=== PATIENT | male | born 1975 | race African-American/Black ===

== ENCOUNTER 2020-01-13 03:32 | Inpatient (IN) | payer SELFPAY ==
[~2020-01-13] VITALS: Ht 182.9 cm; Wt 99.8 kg
[2020-01-13 06:05] LABS: CHLORIDE 106 mEq/L (98-107)
[2020-01-13 06:09] LABS: ETHANOL BLOOD < 10 mg/dL
[2020-01-13 06:37] LABS: BASOPHILS % 0.3 % (0.0-2.0); EOSINOPHILS % 0.5 % (0.0-5.0); HEMATOCRIT. 42.5 % (42.0-52.0); HEMOGLOBIN. 14.3 g/dL (14.0-18.0); LYMPHOCYTES % 11.6 % (20.0-50.0); MEAN CORPUSCULAR HEMOGLOBIN 30.1 pg (28.0-32.0); MEAN CORPUSCULAR VOLUME 89.6 fL (80.0-94.0); MEAN PLATELET VOLUME 9.4 fl (7.4-10.4); MONOCYTES % 8.1 % (2.0-8.0); NEUTROPHILS % 79.5 % (40.0-76.0); PLATELET 303 x1000/uL (130-400); RED BLOOD CELL COUNT 4.74 mill/uL (4.7-6.1); RED CELL DISTRIBUTION WIDTH 13.4 % (11.6-14.6)
[2020-01-13] MEDS ORDERED: ASPIRIN 325MG EC TABLET PO ONE (06:45)
[2020-01-13] MEDS ORDERED: ZOLPIDEM TARTRATE 5MG TABLET PO PRN (07:30)
[2020-01-13] MEDS ORDERED: GUAIFENESIN 200MG/10ML SUGAR FREE UDC PO PRN (07:30)
[2020-01-13] MEDS ORDERED: CLONIDINE 0.1MG TABLET PO PRN (07:30)
[2020-01-13] MEDS ORDERED: DOCUSATE SODIUM 100MG CAPSULE PO PRN (07:30)
[2020-01-13] MEDS ORDERED: NITROGLYCERIN 0.4MG TABLET SL SL PRN (07:30)
[2020-01-13] MEDS ORDERED: KETOROLAC 15MG/ML VIAL IV PRN (07:30)
[2020-01-13] MEDS ORDERED: ACETAMINOPHEN 325MG TABLET PO PRN ×2 (07:30)
[2020-01-13] MEDS ORDERED: ONDANSETRON HCL 4MG/2ML INJ IV PRN (07:30)
[2020-01-13] MEDS ORDERED: MAGNESIUM/ALUMINUM HYDROXIDE/SIMETHICONE 30ML UDC PO PRN (07:30)
[2020-01-13] MEDS ORDERED: IPRATROPIUM/ALBUTEROL 0.5-3(2.5)MG/3ML NEB NEB PRN (07:30)
[2020-01-13 08:00] VITALS: BP 142/79
[2020-01-13] MEDS: FAMOTIDINE 20MG TABLET PO SCH ×2 (08:29→20:38)
[2020-01-13] MEDS: ENOXAPARIN 40MG/0.4ML SYR SUBCUT SCH (08:29)
[2020-01-13 09:00] VITALS: BP 141/78
[2020-01-13 12:00] VITALS: BP 108/69
[2020-01-13 16:00] VITALS: BP_SYST 104; BP_SYST 110; BP_DIAS 56; BP_DIAS 72
[2020-01-13 16:03] LABS: CREATINE KINASE 195 IU/L (39-308)
[2020-01-13 16:04] LABS: CREATINE KINASE MB FRACTION 1.1 ng/mL (0.5-3.6)
[2020-01-13 20:00] VITALS: BP 114/51
[2020-01-14] VITALS: BP 127/64
[2020-01-14 00:07] LABS: CREATINE KINASE 165 IU/L (39-308)
[2020-01-14 00:10] LABS: CREATINE KINASE MB FRACTION < 1.0 ng/mL (0.5-3.6)
[2020-01-14 04:00] VITALS: BP 116/52
[2020-01-14 08:00] VITALS: BP 125/80
[2020-01-14] MEDS ORDERED: ASPIRIN 325MG EC TABLET PO SCH (09:00)
[2020-01-14] MEDS ORDERED: ASPIRIN 81MG EC TABLET PO SCH (09:00)
[2020-01-14] MEDS: FAMOTIDINE 20MG TABLET PO SCH (09:41)
[2020-01-14] MEDS: ENOXAPARIN 40MG/0.4ML SYR SUBCUT SCH (09:42)
[2020-01-14 11:21] VITALS: BP 128/80
[2020-01-14 12:00] VITALS: BP 129/90
== END 2020-01-14 12:05 | disposition home or self-care (01) | DRG 204 ==
LOC: ER 03:32 → 5WST 06:58 → ENRESERV 08:10 → 5WST 09:12
PROVIDERS: ADMIT Internal Medicine; ATTEND Internal Medicine
DX: R55 Syncope and collapse (principal); J45.909 Unspecified asthma, uncomplicated; Z79.899 Other long term (current) drug therapy
CPT/HCPCS: 36415; 71045; 80053; 80061; 80307; 80320; 82550; 82553; 83036; 84484; 85025; 93005; 93970; 96372; 99285; J1650; G0480

== ENCOUNTER 2020-01-23 21:21 | Emergency (ER) | payer SELFPAY ==
[~2020-01-23] VITALS: Ht 185.4 cm; Wt 90.0 kg
[2020-01-23 21:38] VITALS: BP 140/82
[2020-01-23] MEDS ORDERED: CLONIDINE 0.1MG TABLET PO ONE (22:30)
== END 2020-01-23 22:23 | disposition home or self-care (01) ==
LOC: ER 21:21
DX: R55 Syncope and collapse (principal); J45.909 Unspecified asthma, uncomplicated
CPT/HCPCS: 99281